=== PATIENT | female | born 1980 | race Two or more races ===

== ENCOUNTER 2024-04-09 03:35 | Emergency (ER) | payer MEDICAID, SELFPAY ==
[2024-04-09 03:35] VITALS: BMI 29.7
[2024-04-09 03:41] VITALS: BP 109/75; PULSE 85; RESP 19; TEMP 36.6; O2SAT 99
--- NOTE | 2024-04-09 03:43 | XR_ITS ---
Examination: Duplex scan of the lower extremity, unilateral right complete Date and time of exam: April 09, 2024 0418 hours INDICATIONS: Onset right-sided leg pain today Technique: Duplex scan of the extremity veins using B-mode/grayscale imaging and Doppler spectral analysis and color flow Attention is directed to internal echogenicity, compression and augmentation involving these veins, color flow assessment, spectral analysis Findings: Major deep venous structures in the extremity demonstrate normal course and caliber. There is no evidence of deep vein thrombosis. Normal color flow and spectral analysis Impression: Negative for DVT..
[2024-04-09] MEDS: GABAPENTIN 300 MG CAPSULE PO (03:54)
[2024-04-09] MEDS: KETOROLAC INJ 60 MG/2 ML VIAL IM (03:54)
--- NOTE | 2024-04-09 03:58 | EDNOTE_ITS ---
ED Extremity Problem RME/HPI General Chief complaint: Extremity Injury, Lower Stated complaint: R LEG PAIN Time Seen by Provider: 04/09/24 03:43 Arrival date/time: 04/09/24 03:35 44F with no significant PMH presents to ED with 1 week of R lower back pain that radiates down to RLE. Patient denies fall, leg swelling, and SOB. Patient was seen in clinic and given NSAIDs and muscle relaxer w/ only minimal relief. Limitations: no limitations Related Data Previous Rx's ?Medication ?Instructions ?Recorded Promethazine Hcl/Dextromethorphan 1 tsp PO Q4-6HRPRN P RN COUGH OR 02/21/17 SYRUP * (PHENERGAN DM SYRUP *) CONGESTION #120 mL albuterol sulfate 90 mcg/actuation 2 puff inhalation Q 6HR PRN 02/21/17 aerosol inhaler (Proventil HFA) SHORTNESS OF BREATH #1 inh ibuprofen 800 mg tablet 800 mg PO Q8HR PRN INFLAMMAT ION 02/21/17 #30 tabs ibuprofen 800 mg tablet (IBU) 800 mg PO Q8H #20 tabs 0 07/04/23 Allergies Allergy/AdvReac Type Severity Reaction Status Date / Time No Known Allergies Allergy Unknown Verified 04/09/24 03:37 Review of Systems Review of Systems Systems Reviewed: All systems reviewed, normal except as documented Constitutional Constitutional: Reports system reviewed and no additional complaints, except as documented, Denies fever(s) and Denies headache(s) ENT Ears, Nose, Mouth, and Throat: Denies disequilibrium and Denies headache(s) Cardiovascular Cardiovascular: Reports system reviewed and no additional complaints, except as documented, Denies chest pain and Denies dyspnea Respiratory Respiratory: Reports system reviewed and no additional complaints, except as documented, Denies cough and Denies dyspnea Gastrointestinal Gastrointestinal: Reports system reviewed and no additional complaints, except as documented, Denies abdominal pain, Denies nausea and Denies vomiting Musculoskeletal Musculoskeletal: Reports as per HPI, Reports back pain and Reports radiating pain into limb Neurologic Neurologic: Reports system reviewed and no additional complaints, except as documented, Denies confusion, Denies disequilibrium and Denies headache(s) Psychiatric Psychiatric: Denies confusion Past Medical History Past Medical History CARDIAC: Negative Cardiac Disorders RESPIRATORY: Negative Asthma GENITOURINARY: Negative Renal Disease ENDOCRINE: Negative Diabetes Mellitus Type 2 HEMATOLOGIC: Negative Sickle Cell Disease Social History SMOKING STATUS: Never smoker ED Exam General Limitations: Present no limitations General appearance: Present alert and in no apparent distress Head Head exam: Present atraumatic Eye Eye exam: Present normal appearance, PERRL and EOMI ENT ENT exam: Present normal exam, normal oropharynx and mucous membranes moist Neck Neck exam: Present normal inspection, full ROM and trachea midline Chest Chest inspection: Present normal inspection and symmetric chest wall rise Respiratory Respiratory exam: Present normal lung sounds bilaterally Cardiovascular Cardiovascular exam: Present regular rate, normal rhythm and normal heart sounds Abdominal Exam Abdominal exam: Present soft and normal bowel sounds Extremities Exam Extremities exam: Present normal inspection and full ROM Back Exam Back exam: Present normal inspection and full ROM Neurological Exam Neurological exam: Present alert, oriented X3 and CN II-XII intact Psychiatric Psychiatric exam: Present normal affect and normal mood Skin Skin exam: Present warm, dry, intact and normal color Course Quality Measures none Orders Category Date Time Status US venous doppler LE RT Stat Exams 04/09/24 03:43 Ordered Gabapentin [Neurontin] Med 04/09/24 03:43 Discontinued 300 mg PO X1 ONE Ketorolac Inj [Toradol Inj] Med 04/09/24 03:43 Discontinued 60 mg IM X1 ONE Vital Signs Vital signs: Vital Signs Temperature 97.8 F 04/09/24 03:41 Pulse Rate 85 04/09/24 03:41 Respiratory Rate 19 04/09/24 03:41 Blood Pressure 109/75 04/09/24 03:41 Pulse Oximetry (%) 99 04/09/24 03:41 Oxygen Delivery Method Room Air 04/09/24 03:41 O2 at 99% on RA and WNLs Extremity Problem MDM Narrative MDM Narrative:: 44F with no significant PMH presents to ED with 1 week of R lower back pain that radiates down to RLE. Patient denies fall, leg swelling, and SOB. Patient was seen in clinic and given NSAIDs and muscle relaxer w/ only minimal relief. Physical exam reveals no back tenderness. ROM intact. No gross leg swelling. ROM intact. Clear ENT and lungs. Gait normal. Patient is afebrile, calm, and alert. US no DVT. Meds improved symptoms. Likely MSK in nature like sciatica. Patient data External records reviewed:: [facility] previous records Clinical information provided by:: patient Social determinants that could affect healthcare access:: none Patient has the following chronic illnesses:: none How is presenting disease/condition affected by chronic disease/condition?: no chronic disease Evaluation data The following diagnostics were reviewed and interpreted by me:: radiology exam (s) Lab and/or radiology exams considered but not ordered:: ordered Interpretation Summary: above Medications / Prescriptions Medications or Prescriptions considered but not ordered:: ordered Medication administrations:: Medication Administration History Discontinued Medications Gabapentin (Gabapentin 300 Mg Capsule) 300 mg PO X1 ONE Stop: 04/09/24 03:44 Last Admin: 04/09/24 03:54 Dose: 300 mg Documented By: JORGE Ketorolac Tromethamine (Ketorolac Inj 60 Mg/2 Ml Vial) 60 mg IM X1 ONE Stop: 04/09/24 03:44 Last Admin: 04/09/24 03:54 Dose: 60 mg Documented By: JORGE above Consultations Consultation(s) initiated? (list below): No Diagnosis Extremity Problem Differential Diagnosis: herpes zoster, gout, cellulitis, superficial thrombophlebitis, deep venous thrombosis of upper extremity, lower extremity edema, deep vein thrombosis of lower extremity and other (sciatica) Most likely diagnosis given after review of the tests above:: sciatica Admission Indicated Admission indicated?: not indicated Admission Request Was there a request for admission?: No Disposition Plan Disposition Plan: Discharge Discharge Attestation Discharge Attestation: The patient and all family members were given an opportunity to ask questions and understood the discharge instructions. Discharge instructions specifically effects, indications for sooner follow up or return to the emergency department, and the expected course of current diagnosis. Patient condition: Stable Discharge Plan Plan Patient Disposition: HOME (Self Care) Disposition Comment: Stable Prescriptions/Referrals Prescriptions/Med Rec: No Action ibuprofen 800 MG tablet 800 mg PO Q8HR PRN (Reason: INFLAMMATION) Qty: 30 0RF albuterol sulfate [Proventil HFA] 6.7 GM HFA aerosol inhaler 2 puff Inhalation Q6HR PRN (Reason: SHORTNESS OF BREATH) Qty: 1 0RF Promethazine Hcl/Dextromethorphan SYRUP * (PHENERGAN DM SYRUP *) 473 ML syrup 1 tsp PO Q4-6HRPRN PRN (Reason: COUGH OR CONGESTION) Qty: 120 0RF ibuprofen [IBU] 800 mg tablet 800 mg PO Q8H Qty: 20 0RF Problem List Clinical Impression: Sciatica Patient/Caregiver Discharge Instructions Education Materials: ED Sciatica Additional Instructions: Please follow-up with PCP within 24-48 hours and return immediately if symptoms worsen. If problem persists, recommend outpatient PT and/or MRI follow-up. In the meantime, rest, use ice/heat, and/or compression. Print Language: Kyrgyz Stand Alone Forms: Patient Portal Info Letter PA/MILLER APPRENTICE Supervising Physician PA/MILLER APPRENTICE Supervising Physician: Dr. Masters
== END 2024-04-09 05:17 | disposition home or self-care (01) ==
LOC: SERX 06:52
PROVIDERS: Emergency Provider Emergency Medicine; PCP Family Medicine
DX: M54.41 Lumbago with sciatica, right side (principal)
CPT/HCPCS: 93971; 96372; 99284; J1885; A9270

== ENCOUNTER 2024-04-26 11:34 | Emergency (ER) | payer MEDICAID, SELFPAY ==
[2024-04-26 11:36] VITALS: BMI 29.7
[2024-04-26 11:46] VITALS: BP 123/83; PULSE 72; RESP 17; TEMP 36.4; O2SAT 97
--- NOTE | 2024-04-26 11:56 | EDNOTE_ITS ---
ED Extremity Problem RME/HPI General Chief complaint: Extremity Problem,Nontraumatic Stated complaint: RIGHT LEG PAIN Time Seen by Provider: 04/26/24 11:56 Source: patient Arrival date/time: 04/26/24 11:34 44-year-old female with no known medical history presents to the emergency room with a chief complaint of right sided leg pain that radiates down her right leg. Mode of arrival: ambulatory Limitations: no limitations Related Data Previous Rx's ?Medication ?Instructions ?Recorded Promethazine Hcl/Dextromethorphan 1 tsp PO Q4-6HRPRN P RN COUGH OR 02/21/17 SYRUP * (PHENERGAN DM SYRUP *) CONGESTION #120 mL albuterol sulfate 90 mcg/actuation 2 puff inhalation Q 6HR PRN 02/21/17 aerosol inhaler (Proventil HFA) SHORTNESS OF BREATH #1 inh ibuprofen 800 mg tablet 800 mg PO Q8HR PRN INFLAMMAT ION 02/21/17 #30 tabs ibuprofen 800 mg tablet (IBU) 800 mg PO Q8H #20 tabs 0 07/04/23 Allergies Allergy/AdvReac Type Severity Reaction Status Date / Time No Known Allergies Allergy Unknown Verified 04/26/24 11:35 Review of Systems Review of Systems Systems Reviewed: All systems reviewed, normal except as documented Constitutional Constitutional: Reports system reviewed and no additional complaints, except as documented, Denies fatigue, Denies fever(s), Denies headache(s) and Denies weakness Eyes Eyes: Reports system reviewed and no additional complaints, except as documented, Denies blurry vision and Denies change in vision ENT Ears, Nose, Mouth, and Throat: Reports system reviewed and no additional complaints, except as documented, Denies otalgia, Denies headache(s), Denies nasal congestion, Denies throat swelling and Denies vertigo Cardiovascular Cardiovascular: Reports system reviewed and no additional complaints, except as documented, Denies chest pain, Denies dyspnea and Denies dyspnea on exertion Respiratory Respiratory: Reports system reviewed and no additional complaints, except as documented, Denies chest congestion, Denies cough, Denies dyspnea, Denies dyspnea on exertion and Denies wheezing Gastrointestinal Gastrointestinal: Reports system reviewed and no additional complaints, except as documented, Denies abdominal pain, Denies cramping, Denies nausea and Denies vomiting Genitourinary Genitourinary: Reports system reviewed and no additional complaints, except as d ocumented Musculoskeletal Musculoskeletal: Reports system reviewed and no additional complaints, except as documented, Reports arthralgias, Denies back pain, Reports joint swelling and Reports limited range of motion Integumentary/Breasts Skin/Breast: Reports system reviewed and no additional complaints, except as documented and Denies wounds Neurologic Neurologic: Reports system reviewed and no additional complaints, except as documented, Denies confusion, Denies headache(s), Denies lack of coordination, Denies vertigo and Denies weakness Psychiatric Psychiatric: Reports system reviewed and no additional complaints, except as documented, Denies anxiety, Denies confusion, Denies depression, Denies paranoia, Denies suicidal ideation and Denies tactile hallucinations Endocrine Endocrine: Reports system reviewed and no additional complaints, except as documented and Denies fatigue Hematologic/Lymphatic Hematologic/Lymphatic: Reports system reviewed and no additional complaints, except as documented and Denies lymphadenopathy Allergic/Immunologic Allergic/Immunologic: Reports system reviewed and no additional complaints, except as documented, Denies throat swelling, Denies urticaria and Denies wheezing Past Medical History Past Medical History CARDIAC: Negative Cardiac Disorders RESPIRATORY: Negative Asthma GENITOURINARY: Negative Renal Disease ENDOCRINE: Negative Diabetes Mellitus Type 2 HEMATOLOGIC: Negative Sickle Cell Disease Social History SMOKING STATUS: Never smoker ED Exam General Limitations: Present no limitations General appearance: Present alert and in no apparent distress Head Head exam: Present atraumatic Eye Eye exam: Present normal appearance, PERRL and EOMI ENT ENT exam: Present normal exam, normal oropharynx and mucous membranes moist Neck Neck exam: Present normal inspection, full ROM and trachea midline Chest Chest inspection: Present normal inspection and symmetric chest wall rise Respiratory Respiratory exam: Present normal lung sounds bilaterally Cardiovascular Cardiovascular exam: Present regular rate, normal rhythm and normal heart sounds Abdominal Exam Abdominal exam: Present soft and normal bowel sounds Extremities Exam Extremities exam: Present normal inspection and full ROM Expanded Lower Extremity Exam Hip/Pelvis exam: Present normal inspection Upper leg exam: Present normal inspection Knee exam: Present normal inspection Lower leg exam: Present normal inspection Ankle exam: Present normal inspection Foot/toe exam: Present normal inspection Neurovascular/Tendon exam: Present normal capillary refill Gait: observed and normal Back Exam Back exam: Present normal inspection, full ROM and sciatic notch tenderness (R) Neurological Exam Neurological exam: Present alert, oriented X3 and CN II-XII intact Psychiatric Psychiatric exam: Present normal affect and normal mood Skin Skin exam: Present warm, dry, intact and normal color Course Quality Measures none Orders Category Date Time Status Ketorolac Inj [Toradol Inj] Med 04/26/24 11:53 Discontinued 30 mg IM X1 ONE Vital Signs Vital signs: Vital Signs Temperature 97.5 F 04/26/24 11:46 Pulse Rate 72 04/26/24 11:46 Respiratory Rate 17 04/26/24 11:46 Blood Pressure 123/83 04/26/24 11:46 Pulse Oximetry (%) 97 04/26/24 11:46 Oxygen Delivery Method Room Air 04/26/24 11:46 O2 saturation 97% within normal limits Extremity Problem MDM Narrative MDM Narrative:: 44-year-old female with no known medical history presents to the emergency room with a chief complaint of right sided leg pain that radiates down her right leg. Patient is hemodynamically stable and in no apparent distress Physical examination shows right-sided sciatic notch tenderness with palpation. Patient states she has a shooting pain down her right leg that is intermittent. Patient was discharged and educated to follow-up with primary care provider and return to the emergency room for any evidence of worsening signs or symptoms Patient data External records reviewed:: [facility] previous records Clinical information provided by:: patient Social determinants that could affect healthcare access:: none Patient has the following chronic illnesses:: No chronic illness How is presenting disease/condition affected by chronic disease/condition?: no chronic disease Evaluation data The following diagnostics were reviewed and interpreted by me:: lab results and radiology exam(s) Lab and/or radiology exams considered but not ordered:: Labs and radiology exams considered and ordered Interpretation Summary: N/A Medications / Prescriptions Medications or Prescriptions considered but not ordered:: Medication given Medication administrations:: Medication Administration History Discontinued Medications Ketorolac Tromethamine (Ketorolac Inj 60 Mg/2 Ml Vial) 30 mg IM X1 ONE Stop: 04/26/24 11:54 Last Admin: 04/26/24 12:07 Dose: 30 mg Documented By: ER Medication given Consultations Consultation(s) initiated? (list below): No Diagnosis Extremity Problem Differential Diagnosis: lower extremity edema and other (Sciatica/lumbar back pain) Most likely diagnosis given after review of the tests above:: Sciatica Admission Indicated Admission indicated?: not indicated Admission Request Was there a request for admission?: No Disposition Plan Disposition Plan: Discharge Discharge Attestation Discharge Attestation: The patient and all family members were given an opportunity to ask questions and understood the discharge instructions. Discharge instructions specifically effects, indications for sooner follow up or return to the emergency department, and the expected course of current diagnosis. Patient condition: Stable Discharge Plan Plan Patient Disposition: HOME (Self Care) Disposition Comment: Stable Prescriptions/Referrals Prescriptions/Med Rec: No Action ibuprofen 800 MG tablet 800 mg PO Q8HR PRN (Reason: INFLAMMATION) Qty: 30 0RF albuterol sulfate [Proventil HFA] 6.7 GM HFA aerosol inhaler 2 puff Inhalation Q6HR PRN (Reason: SHORTNESS OF BREATH) Qty: 1 0RF Promethazine Hcl/Dextromethorphan SYRUP * (PHENERGAN DM SYRUP *) 473 ML syrup 1 tsp PO Q4-6HRPRN PRN (Reason: COUGH OR CONGESTION) Qty: 120 0RF ibuprofen [IBU] 800 mg tablet 800 mg PO Q8H Qty: 20 0RF Problem List Clinical Impression: Sciatica Patient/Caregiver Discharge Instructions Education Materials: ED Sciatica Additional Instructions: Please follow-up with your primary care provider in the next 24 to 40 hours. For any evidence of worsening signs or symptoms return to the emergency room immediately Print Language: Bulgarian Stand Alone Forms: [employer] Award Info., Patient Portal Info Letter PA/MARCO A Supervising Physician TARYN/MARCO A Supervising Physician: Dr Mar
[2024-04-26] MEDS: KETOROLAC INJ 60 MG/2 ML VIAL 30 MG IM (12:07)
== END 2024-04-26 13:19 | disposition home or self-care (01) ==
LOC: SERX 13:07
PROVIDERS: Emergency Provider Emergency Medicine; PCP Physician Assistant
DX: M54.41 Lumbago with sciatica, right side (principal)
CPT/HCPCS: 96372; 99283; J1885

== ENCOUNTER 2024-05-06 08:36 | Emergency (ER) | payer MEDICAID, SELFPAY ==
[2024-05-06 08:53] VITALS: BP 128/79; PULSE 65; RESP 16; TEMP 36.6; O2SAT 98; BMI 29.7
--- NOTE | 2024-05-06 08:58 | XR_ITS ---
Examination: Duplex scan of the lower extremity, unilateral right complete Date and time of exam: May 06, 2024 1040 hrs. Indications: Right lower leg pain beginning one month ago Technique: Duplex scan of the extremity veins using B-mode/grayscale imaging and Doppler spectral analysis and color flow Attention is directed to internal echogenicity, compression and augmentation involving these veins, color flow assessment, spectral analysis Findings: Major deep venous structures in the extremity demonstrate normal course and caliber. There is no evidence of deep vein thrombosis. Normal color flow and spectral analysis Impression: Negative for DVT..
--- NOTE | 2024-05-06 08:58 | XR_ITS ---
Examination: Tibia-Fibula, right , 2 views Technique: Tibia-fibula AP lateral 2 views Date and time of exam: May 06, 2024 at 0907 hrs. Indications: Sudden onset lower leg pain beginning one month ago Findings: Moderate osteopenia No fracture or dislocation No cortical bone destruction Impression: No fracture or cortical bone destruction
[2024-05-06] MEDS: KETOROLAC INJ 30 MG/ML VIAL IM (09:04)
--- NOTE | 2024-05-06 10:58 | EDNOTE_ITS ---
Lower Extremity Injury RME/HPI General Chief Complaint: Extremity Injury, Lower Stated Complaint: RIGHT LOWER LEG PAIN/SPASMS Time Seen by Provider: 05/06/24 08:39 Arrival date/time: 05/06/24 08:36 44-year-old female presents to the emergency department today complains of right thigh pain and right waite pain patient reports symptoms ongoing for last couple of days patient reports she is active and goes to the gym regularly Limitations: no limitations Related Data Previous Rx's ?Medication ?Instructions ?Recorded Promethazine Hcl/Dextromethorphan 1 tsp PO Q4-6HRPRN P RN COUGH OR 02/21/17 SYRUP * (PHENERGAN DM SYRUP *) CONGESTION #120 mL albuterol sulfate 90 mcg/actuation 2 puff inhalation Q 6HR PRN 02/21/17 aerosol inhaler (Proventil HFA) SHORTNESS OF BREATH #1 inh ibuprofen 800 mg tablet 800 mg PO Q8HR PRN INFLAMMAT ION 02/21/17 #30 tabs ibuprofen 800 mg tablet (IBU) 800 mg PO Q8H #20 tabs 0 07/04/23 cyclobenzaprine 10 mg tablet 10 mg PO TID PRN muscle s pasm 10 05/06/24 days #30 tab-caps ibuprofen 800 mg tablet 800 mg PO TID PRN pain #30 t abs 05/06/24 Allergies Allergy/AdvReac Type Severity Reaction Status Date / Time No Known Allergies Allergy Unknown Verified 04/26/24 11:35 Review of Systems Review of Systems Systems Reviewed: All systems reviewed, normal except as documented Constitutional Constitutional: Reports system reviewed and no additional complaints, except as documented, Denies fever(s) and Denies headache(s) Eyes Eyes: Reports system reviewed and no additional complaints, except as documented and Denies blurry vision ENT Ears, Nose, Mouth, and Throat: Reports system reviewed and no additional complaints, except as documented, Denies headache(s), Denies nasal congestion and Denies nasal discharge Cardiovascular Cardiovascular: Reports system reviewed and no additional complaints, except as documented, Denies chest pain and Denies dyspnea Respiratory Respiratory: Reports system reviewed and no additional complaints, except as documented, Denies chest congestion, Denies cough and Denies dyspnea Gastrointestinal Gastrointestinal: Reports system reviewed and no additional complaints, except as documented and Denies abdominal pain Musculoskeletal Musculoskeletal: Reports system reviewed and no additional complaints, except as documented, Denies back pain, Denies deformity and Reports other (Right thigh pain, right waite pain) Integumentary/Breasts Skin/Breast: Reports system reviewed and no additional complaints, except as documented and Denies rash Neurologic Neurologic: Reports system reviewed and no additional complaints, except as documented, Reports as per HPI and Denies headache(s) Past Medical History Past Medical History CARDIAC: Negative Cardiac Disorders RESPIRATORY: Negative Asthma GENITOURINARY: Negative Renal Disease ENDOCRINE: Negative Diabetes Mellitus Type 2 HEMATOLOGIC: Negative Sickle Cell Disease Social History SMOKING STATUS: Never smoker ED Exam General Limitations: Present no limitations General appearance: Present alert and in no apparent distress Head Head exam: Present atraumatic Eye Eye exam: Present normal appearance, PERRL and EOMI ENT ENT exam: Present normal exam, normal oropharynx and mucous membranes moist Neck Neck exam: Present normal inspection, full ROM and trachea midline Chest Chest inspection: Present normal inspection and symmetric chest wall rise Respiratory Respiratory exam: Present normal lung sounds bilaterally Cardiovascular Cardiovascular exam: Present regular rate, normal rhythm and normal heart sounds Abdominal Exam Abdominal exam: Present soft and normal bowel sounds Extremities Exam Extremities exam: Present normal inspection and full ROM Back Exam Back exam: Present normal inspection and full ROM Neurological Exam Neurological exam: Present alert, oriented X3 and CN II-XII intact Psychiatric Psychiatric exam: Present normal affect and normal mood Skin Skin exam: Present warm, dry, intact and normal color Course Quality Measures none Orders Category Date Time Status US venous doppler LE RT Stat Exams 05/06/24 08:58 Taken XR tibia fibula RT 2V Stat Exams 05/06/24 08:58 Completed Ketorolac Inj [Toradol Inj] Med 05/06/24 08:58 Discontinued 30 mg IM X1 ONE Vital Signs Vital signs: Vital Signs Temperature 97.9 F 05/06/24 08:53 Pulse Rate 65 05/06/24 08:53 Respiratory Rate 16 05/06/24 08:53 Blood Pressure 128/79 05/06/24 08:53 Pulse Oximetry (%) 98 05/06/24 08:53 Oxygen Delivery Method Room Air 05/06/24 08:53 O2 saturation 98% room air within normal limits Extremity Injury, Lower MDM Narrative MDM Narrative:: 44-year-old female presents to the emergency department today complains of right thigh pain and right waite pain patient reports symptoms ongoing for last couple of days patient reports she is active and goes to the gym regularly On exam patient well-appearing patient does not appear ill or toxic On exam patient is tenderness of right waite and right thigh Imaging obtained no acute emergent findings noted Patient given medication for pain discharged home with pain meds Patient discharged home in no distress to follow-up with primary care doctor in the next 24 to 48 hours and for any worsening symptoms to return to the ER immediately Patient data External records reviewed:: [facility] previous records Clinical information provided by:: patient Social determinants that could affect healthcare access:: none Patient has the following chronic illnesses:: None How is presenting disease/condition affected by chronic disease/condition?: no chronic disease Evaluation data The following diagnostics were reviewed and interpreted by me:: radiology exam(s) Lab and/or radiology exams considered but not ordered:: Radiology obtain Interpretation Summary: Reviewed by me Medications / Prescriptions Medications or Prescriptions considered but not ordered:: Given Medication administrations:: Medication Administration History Discontinued Medications Ketorolac Tromethamine (Ketorolac Inj 30 Mg/Ml Vial) 30 mg IM X1 ONE Stop: 05/06/24 08:59 Last Admin: 05/06/24 09:04 Dose: 30 mg Documented By: OA Given Consultations Consultation(s) initiated? (list below): No Diagnosis Extremity Injury, Lower Differential Diagnosis: other (Leg pain right) Most likely diagnosis given after review of the tests above:: Leg pain Admission Indicated Admission indicated?: not indicated Admission Request Was there a request for admission?: No Disposition Plan Disposition Plan: Discharge Discharge Attestation Discharge Attestation: The patient and all family members were given an opportunity to ask questions and understood the discharge instructions. Discharge instructions specifically effects, indications for sooner follow up or return to the emergency department, and the expected course of current diagnosis. Patient condition: Stable Discharge Plan Plan Patient Disposition: HOME (Self Care) Disposition Comment: Stable Prescriptions/Referrals Prescriptions/Med Rec: New cyclobenzaprine 10 mg tablet 10 mg PO TID PRN (Reason: muscle spasm) 10 Days Qty: 30 0RF ibuprofen 800 mg tablet 800 mg PO TID PRN (Reason: pain) Qty: 30 0RF No Action ibuprofen 800 MG tablet 800 mg PO Q8HR PRN (Reason: INFLAMMATION) Qty: 30 0RF albuterol sulfate [Proventil HFA] 6.7 GM HFA aerosol inhaler 2 puff Inhalation Q6HR PRN (Reason: SHORTNESS OF BREATH) Qty: 1 0RF Promethazine Hcl/Dextromethorphan SYRUP * (PHENERGAN DM SYRUP *) 473 ML syrup 1 tsp PO Q4-6HRPRN PRN (Reason: COUGH OR CONGESTION) Qty: 120 0RF ibuprofen [IBU] 800 mg tablet 800 mg PO Q8H Qty: 20 0RF Referrals: No Primary/Family,Physician [Primary Care Provider] - In 1 week Problem List Clinical Impression: Leg pain, right Patient/Caregiver Discharge Instructions Education Materials: ED RICE Additional Instructions: Please follow up with your primary care doctor in the next 24-48hrs for any worsening symptoms return here immediately Print Language: Vietnamese Stand Alone Forms: [employer] Award Info., Work/School Release, Patient Portal Info Letter PA/BURRING MACHINE OPERATOR Supervising Physician PA/BURRING MACHINE OPERATOR Supervising Physician: Dr pham
== END 2024-05-06 11:06 | disposition home or self-care (01) ==
PROVIDERS: Emergency Provider Emergency Medicine
DX: M79.651 Pain in right thigh (principal)
CPT/HCPCS: 73590; 93971; 99284; J1885

== ENCOUNTER 2024-05-21 23:59 | Emergency (ER) | payer MEDICAID, SELFPAY ==
[2024-05-22] VITALS: BMI 29.7
[2024-05-22 00:17] VITALS: BP 129/77; PULSE 68; RESP 16; TEMP 36.6; O2SAT 97
--- NOTE | 2024-05-22 00:27 | EDNOTE_ITS ---
ED Extremity Problem RME/HPI General Chief complaint: Extremity Problem,Nontraumatic Stated complaint: RIGHT LOWER LEG PAIN Time Seen by Provider: 05/22/24 00:22 Arrival date/time: 05/21/24 23:59 44F with no significant PMH presents to ED with intermittent R lower back pain that radiates down to RLE. Patient denies fall, leg swelling, and SOB. Patient has been here a few times for this with multiple normal US. Patient states this feels the same as previous incidents. Limitations: no limitations Related Data Previous Rx's ?Medication ?Instructions ?Recorded Promethazine Hcl/Dextromethorphan 1 tsp PO Q4-6HRPRN P RN COUGH OR 02/21/17 SYRUP * (PHENERGAN DM SYRUP *) CONGESTION #120 mL albuterol sulfate 90 mcg/actuation 2 puff inhalation Q 6HR PRN 02/21/17 aerosol inhaler (Proventil HFA) SHORTNESS OF BREATH #1 inh ibuprofen 800 mg tablet 800 mg PO Q8HR PRN INFLAMMAT ION 02/21/17 #30 tabs ibuprofen 800 mg tablet (IBU) 800 mg PO Q8H #20 tabs 0 07/04/23 ibuprofen 800 mg tablet 800 mg PO TID PRN pain #30 t abs 05/06/24 Allergies Allergy/AdvReac Type Severity Reaction Status Date / Time No Known Allergies Allergy Unknown Verified 05/22/24 00:00 Review of Systems Review of Systems Systems Reviewed: All systems reviewed, normal except as documented Constitutional Constitutional: Reports system reviewed and no additional complaints, except as documented, Denies fever(s) and Denies headache(s) ENT Ears, Nose, Mouth, and Throat: Denies disequilibrium and Denies headache(s) Cardiovascular Cardiovascular: Reports system reviewed and no additional complaints, except as documented, Denies chest pain and Denies dyspnea Respiratory Respiratory: Reports system reviewed and no additional complaints, except as documented, Denies cough and Denies dyspnea Gastrointestinal Gastrointestinal: Reports system reviewed and no additional complaints, except as documented, Denies abdominal pain, Denies nausea and Denies vomiting Musculoskeletal Musculoskeletal: Reports as per HPI, Reports back pain and Reports radiating pain into limb Neurologic Neurologic: Reports system reviewed and no additional complaints, except as documented, Denies confusion, Denies disequilibrium and Denies headache(s) Psychiatric Psychiatric: Denies confusion Past Medical History Past Medical History CARDIAC: Negative Cardiac Disorders RESPIRATORY: Negative Asthma GENITOURINARY: Negative Renal Disease ENDOCRINE: Negative Diabetes Mellitus Type 2 HEMATOLOGIC: Negative Sickle Cell Disease Social History SMOKING STATUS: Never smoker ED Exam General Limitations: Present no limitations General appearance: Present alert and in no apparent distress Head Head exam: Present atraumatic Eye Eye exam: Present normal appearance, PERRL and EOMI ENT ENT exam: Present normal exam, normal oropharynx and mucous membranes moist Neck Neck exam: Present normal inspection, full ROM and trachea midline Chest Chest inspection: Present normal inspection and symmetric chest wall rise Respiratory Respiratory exam: Present normal lung sounds bilaterally Cardiovascular Cardiovascular exam: Present regular rate, normal rhythm and normal heart sounds Abdominal Exam Abdominal exam: Present soft and normal bowel sounds Extremities Exam Extremities exam: Present normal inspection and full ROM Back Exam Back exam: Present normal inspection and full ROM Neurological Exam Neurological exam: Present alert, oriented X3 and CN II-XII intact Psychiatric Psychiatric exam: Present normal affect and normal mood Skin Skin exam: Present warm, dry, intact and normal color Course Quality Measures none Orders Category Date Time Status Gabapentin [Neurontin] Med 05/22/24 00:22 Once 300 mg PO X1 ONE Ketorolac Inj [Toradol Inj] Med 05/22/24 00:22 Once 60 mg IM X1 ONE Vital Signs Vital signs: Vital Signs Temperature 97.9 F 05/22/24 00:17 Pulse Rate 68 05/22/24 00:17 Respiratory Rate 16 05/22/24 00:17 Blood Pressure 129/77 05/22/24 00:17 Pulse Oximetry (%) 97 05/22/24 00:17 Oxygen Delivery Method Room Air 05/22/24 00:17 O2 at 97% on RA and WNLs Extremity Problem MDM Narrative MDM Narrative:: 44F with no significant PMH presents to ED with intermittent R lower back pain that radiates down to RLE. Patient denies fall, leg swelling, and SOB. Patient has been here a few times for this with multiple normal US. Patient states this feels the same as previous incidents. Physical exam reveals no back tenderness. ROM intact. No gross leg swelling. ROM intact. Clear ENT and lungs. Gait normal. Patient is afebrile, calm, and alert. Meds given. Patient data External records reviewed:: [facility] previous records Clinical information provided by:: patient Social determinants that could affect healthcare access:: none Patient has the following chronic illnesses:: none How is presenting disease/condition affected by chronic disease/condition?: no chronic disease Evaluation data The following diagnostics were reviewed and interpreted by me:: other (specify) (none) Lab and/or radiology exams considered but not ordered:: not ordered Interpretation Summary: n/a Medications / Prescriptions Medications or Prescriptions considered but not ordered:: ordered Medication administrations:: Medication Administration History Gabapentin (Gabapentin 300 Mg Capsule) 300 mg PO X1 ONE Stop: 05/22/24 00:23 Ketorolac Tromethamine (Ketorolac Inj 60 Mg/2 Ml Vial) 60 mg IM X1 ONE Stop: 05/22/24 00:23 above Consultations Consultation(s) initiated? (list below): No Diagnosis Extremity Problem Differential Diagnosis: herpes zoster, gout, cellulitis, superficial thrombophlebitis, deep venous thrombosis of upper extremity, lower extremity edema, deep vein thrombosis of lower extremity and other (sciatica) Most likely diagnosis given after review of the tests above:: sciatica Admission Indicated Admission indicated?: not indicated Admission Request Was there a request for admission?: No Disposition Plan Disposition Plan: Discharge Discharge Attestation Discharge Attestation: The patient and all family members were given an opportunity to ask questions and understood the discharge instructions. Discharge instructions specifically effects, indications for sooner follow up or return to the emergency department, and the expected course of current diagnosis. Patient condition: Stable Discharge Plan Plan Patient Disposition: HOME (Self Care) Disposition Comment: Stable Prescriptions/Referrals Prescriptions/Med Rec: No Action ibuprofen 800 MG tablet 800 mg PO Q8HR PRN (Reason: INFLAMMATION) Qty: 30 0RF albuterol sulfate [Proventil HFA] 6.7 GM HFA aerosol inhaler 2 puff Inhalation Q6HR PRN (Reason: SHORTNESS OF BREATH) Qty: 1 0RF Promethazine Hcl/Dextromethorphan SYRUP * (PHENERGAN DM SYRUP *) 473 ML syrup 1 tsp PO Q4-6HRPRN PRN (Reason: COUGH OR CONGESTION) Qty: 120 0RF ibuprofen [IBU] 800 mg tablet 800 mg PO Q8H Qty: 20 0RF ibuprofen 800 mg tablet 800 mg PO TID PRN (Reason: pain) Qty: 30 0RF Problem List Clinical Impression: Sciatica Patient/Caregiver Discharge Instructions Education Materials: ED Sciatica Additional Instructions: Please follow-up with PCP within 24-48 hours and return immediately if symptoms worsen. If problem persists, recommend outpatient PT and/or MRI follow-up. In the meantime, rest, use ice/heat, and/or compression. Print Language: Kuwaiti Stand Alone Forms: Patient Portal Info Letter PA/POSTAL MAIL CARRIER Supervising Physician PA/POSTAL MAIL CARRIER Supervising Physician: Dr. Nuñez
[2024-05-22] MEDS: KETOROLAC INJ 60 MG/2 ML VIAL IM (01:05)
[2024-05-22] MEDS: GABAPENTIN 300 MG CAPSULE PO (01:05)
== END 2024-05-22 01:42 | disposition home or self-care (01) ==
LOC: SERX 05-22 01:10
PROVIDERS: Emergency Provider Emergency Medicine; PCP Physician Assistant
DX: M54.41 Lumbago with sciatica, right side (principal)
CPT/HCPCS: 96372; 99283; J1885; A9270